=== PATIENT | male | born 1975 | race Asian ===

== ENCOUNTER → 2018-06-24 | Outpatient (CLI) | payer BC ==
[2018-06-24 20:03] LABS: CALCIUM 8.3 mg/dL (8.4-10.2); CREATININE, serum 1.04 mg/dL (0.66-1.25)
== END ==
LOC: ZCOL.LAB 19:29
PROVIDERS: Family Medicine
DX: I10 Essential (primary) hypertension (principal)

== ENCOUNTER 2018-08-27 15:13 | Inpatient (IN) | payer BC ==
[~2018-08-27] VITALS: Ht 162.6 cm; Wt 70.3 kg
[2018-08-27] VITALS (174 sets, daily range): BP systolic 119–135; BP diastolic 79–83; PULSE 114–118; TEMP 7.9; O2SAT 87–100
[2018-08-27] MEDS ORDERED: PRINIVIL40 MG PO (15:56)
[2018-08-27] MEDS ORDERED: INSLANT SQ (15:56)
[2018-08-27] MEDS ORDERED: NEURONTIN300 MG/CAP PO (15:56)
[2018-08-27] MEDS ORDERED: GLUCOPHAGE1000 MG PO (15:57)
[2018-08-27 15:58] LABS: BASO # 0.1 (0.0-0.2); BASO % 1.1 % (0.0-2.0); EOS # 0.1 (0.0-0.7); EOS % 1.1 % (0-4.0); GRAN # 6.6 (1.4-6.5); GRAN % 67.3 % (42.2-75.2); HEMATOCRIT 42.2 % (42.0-52.0); HEMOGLOBIN 13.4 g/dl (13.5-18.0); LYMPH % 20.6 % (20.0-51.0); MEAN CELL VOLUME 78 fl (80.0-100.0); MEAN CORPUSCULAR HEMOGLOBIN 25 pg (27.0-31.0); MEAN CORPUSCULAR HGB CONC 32 g/dl (33.0-37.0); MEAN PLATELET VOLUME 9.4 fl (7.4-10.4); MONO # 0.9 (0.1-0.6); MONO % 9.5 % (1.7-9.3); PLATELET COUNT 255 K/mm3 (130-400); RED BLOOD COUNT 5.43 M/mm3 (4.20-5.60); REDCELL DISTRIBUTION WIDTH-CV 16.4 % (11.5-14.5)
[2018-08-27 16:08] LABS: ALANINE AMINOTRANSFERASE 39 U/L (21-72); ALBUMIN 2.9 gm/dL (3.5-5.0); ALCOHOL(ethanol),MEDICAL 152 mg/dL; ALKALINE PHOSPHATASE 150 U/L (50-136); ANION GAP 12 mmol/L (7-16); AST,SGOT 59 U/L (15-37); BILIRUBIN,TOTAL 0.3 mg/dL (0.0-1.0); BLOOD UREA NITROGEN 8 mg/dL (9-20); CALCIUM 8.1 mg/dL (8.4-10.2); CARBON DIOXIDE 23 mmol/L (22-30); CHLORIDE 94 mmol/L (98-107); CREATININE, serum 1.03 mg/dL (0.66-1.25); LIPASE 126 U/L (23-300); POTASSIUM 3.4 mmol/L (3.4-5.0); SODIUM 129 mmol/L (137-145); TOTAL PROTEIN 6.2 gm/dL (6.4-8.2)
[2018-08-27 16:09] LABS: ACETONE,SERUM NEGATIVE
[2018-08-27 16:14] LABS: GLUCOSE 588 mg/dL (74-106)
[2018-08-27 16:20] LABS: TROPONIN-I < 0.012 ng/mL (0.000-0.035)
--- NOTE | 2018-08-27 16:30 | NUR ---
Patient arrives to ICU room 2 by stretcher. Patient able to ambulate from stretcher to bed. Patient assessment completed. Patient denies any shortness of breath. States he has pain at 2-3/10 and describes it as a burning pain. Right great toe amputatation apparent upon assessment. Patient heart rate tachycardic. DONNA Black, accompanies patient and called report to this nurse before arrival. Will closely monitor.
[2018-08-27 18:48] LABS: MAGNESIUM 2.2 mg/dL (1.6-2.3); PHOSPHOROUS 2.9 mg/dL (2.5-4.5)
[2018-08-27 18:51] LABS: COLLECTION METHOD CLEAN CATCH
[2018-08-27 19:06] LABS: PH 5 (5-8); SQUAMOUS EPITHELIAL None Seen /hpf; URINE APPEARANCE Clear; URINE BACTERIA None Seen /hpf; URINE BILIRUBIN Negative (NEGATIVE); URINE BLOOD 1+ (NEGATIVE); URINE COLOR Straw; URINE GLUCOSE 3+ (NEGATIVE); URINE KETONE Negative (NEGATIVE); URINE LEUKOCYTE ESTERASE Negative (NEGATIVE); URINE NITRATE Negative (NEGATIVE); URINE PROTEIN(semi-quant) 2+ (NEGATIVE); URINE UROBILINOGEN Negative (NEGATIVE)
--- NOTE | 2018-08-27 19:20 | NUR ---
Bedside report given to DONNA Otoole.
--- NOTE | 2018-08-27 19:30 | NUR ---
Patient arrives to ICU room 2 by stretcher accompanied by DONNA Black, at 1823. Report received from Sofia prior to patient arrival. Patient ambulates from stretcher to bed. Patient states he is having some chest pain, describes it as burning and rates it a 2-3/10. Initial assessment and assessment B complete. No remarkable findings on assessment, with the exception of healed great right toe amputation. Patient states he drinks only beer. DONNA Black, calls this nurse at 1844 to notify her that 3 empty single shot containers of alcohol were found in the patient's ER room after he was transported to the ICU. Patient asked if he has any additional alcohol on his person. Patient states that he does not and only drank one in the ER. Clarified with patient that 3 empty bottles were found in ER, and patient denies additional alcohol when asked again. Patient's clothing and belongings sent home with family members. Patient constantly visually monitored since arriving on floor.
[2018-08-27 21:59] LABS: ANION GAP 9 mmol/L (7-16); BLOOD UREA NITROGEN 7 mg/dL (9-20); CARBON DIOXIDE 25 mmol/L (22-30); CHLORIDE 102 mmol/L (98-107); CREATININE, serum 1.06 mg/dL (0.66-1.25); GLUCOSE 257 mg/dL (74-106); POTASSIUM 3.2 mmol/L (3.4-5.0); SODIUM 135 mmol/L (137-145)
[2018-08-27 22:16] LABS: TROPONIN-I 6 HR POST INITIAL < 0.012 ng/mL (0.000-0.034)
[2018-08-28] VITALS (469 sets, daily range): BP systolic 96–170; BP diastolic 78–105; PULSE 92–115; TEMP 98–98.8; O2SAT 74–100
--- NOTE | 2018-08-28 04:45 | NUR ---
PT HAS HIS WALLET WITH MONEY AT BEDSIDE. PT REFUSED TO HAVE THIS RN COUNT HIS MONEY AND PUT ON SAFE, INSISTED TO KEEP IT AT BEDSIDE AND VERBALIZED "IT'S OKAY." PT REMINDED THAT HOSPITAL/STAFF ARE NOT RESPONSIBLE IN CASE OF LOSS AND PT VERBALIZED UNDERSTANDING.
[2018-08-28 06:25] LABS: BASO # 0.1 (0.0-0.2); BASO % 0.6 % (0.0-2.0); EOS # 0.3 (0.0-0.7); EOS % 3.9 % (0-4.0); GRAN # 4.2 (1.4-6.5); GRAN % 49.6 % (42.2-75.2); HEMATOCRIT 39.6 % (42.0-52.0); HEMOGLOBIN 12.4 g/dl (13.5-18.0); LYMPH # 3.1 (1.2-3.4); LYMPH % 36.6 % (20.0-51.0); MEAN CELL VOLUME 78 fl (80.0-100.0); MEAN CORPUSCULAR HEMOGLOBIN 25 pg (27.0-31.0); MEAN CORPUSCULAR HGB CONC 31 g/dl (33.0-37.0); MEAN PLATELET VOLUME 9.2 fl (7.4-10.4); MONO # 0.7 (0.1-0.6); MONO % 8.8 % (1.7-9.3); PLATELET COUNT 223 K/mm3 (130-400); RED BLOOD COUNT 5.07 M/mm3 (4.20-5.60); REDCELL DISTRIBUTION WIDTH-CV 16.5 % (11.5-14.5)
[2018-08-28 06:38] LABS: ALBUMIN 2.3 gm/dL (3.5-5.0); BILIRUBIN UNCONJUGATED 0.2 mg/dL (0.0-1.1); BILIRUBIN,DIRECT 0.1 mg/dL (0.0-0.4); BILIRUBIN,TOTAL 0.2 mg/dL (0.0-1.0); CALCIUM 7.6 mg/dL (8.4-10.2); CREATININE, serum 1.05 mg/dL (0.66-1.25); POTASSIUM 3.7 mmol/L (3.4-5.0); TOTAL PROTEIN 5.4 gm/dL (6.4-8.2)
[2018-08-28 06:46] LABS: HEMOGLOBIN A1C 13.4 %
[2018-08-28 07:10] LABS: CHOLESTEROL RISK RATIO 4.6; MAGNESIUM 1.9 mg/dL (1.6-2.3); PHOSPHOROUS 3.4 mg/dL (2.5-4.5)
[2018-08-28 08:56] LABS: IRON,SERUM 145 ug/dL (35-150)
[2018-08-28 09:05] LABS: TOTAL IRON BINDING CAPACITY 242 ug/dL (261-462)
[2018-08-28 09:31] LABS: FERRITIN 67 ng/mL (18-464)
[2018-08-28 09:46] LABS: LACTIC ACID 1.7 mmol/L (0.4-2.0)
--- NOTE | 2018-08-28 10:00 | NUR ---
PT'S IV TO RIGHT HAND BEGAN BURNING, PT REQUESTED TO HAVE IV DISCONTINUED. IV REMOVED. 20G INSERTED TO LEFT UPPER ARM.
--- NOTE | 2018-08-28 12:48 | NUR ---
HEAVEN and SW student met with patient to discuss discharge planning. Patient lives in [place] with his family. His PCP is Dr Chi and he obtains his medications at [facility] in [place]. Patient reports he drinks about a 12 pack of beer a day. He would like to do inpatient therapy after detox if he can find one that is around a week to 10 days due to his job. If he cant find something with that length of stay then he would like to do outpatient. 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 Patient reports his family is supportive of him. HEAVEN offered to help patient complete DPOA, he refused. is putting in a psych consult. Patient to move to floor today if bed avalible. SW will find options that fit patients needs and will present them to him.
--- NOTE | 2018-08-28 14:38 | NUR ---
REPORT CALLED TO KEZIA THOMPSON ON 3RD FLOOR.
--- NOTE | 2018-08-28 14:45 | NUR ---
PT TAKEN VIA WHEELCHAIR TO MEDICAL ROOM 316. PT AWAKE, ALERT, AND COOPERATIVE. PT'S BELONGINGS TRANSFERRED WITH PATIENT. CONTACT MADE WITH NURSING STAFF OF PATIENT'S ARRIVAL. CARE TRANSFERRED.
--- NOTE | 2018-08-28 15:00 | NUR ---
Oriented pt to room. Pt is sitting on side of bed, breathing even and unlabored. Pt states he is feeling dizzy but no other complaints. Reminded pt to not get out of bed alone and to call nurse for assistance. Call light in reach.
--- NOTE | 2018-08-28 15:20 | NUR ---
Pt sitting in bed, still complaining of being dizzy. Checked FSBS, 276, gave 8 units of insulin. Pt denies any needs. Call light in reach.
[2018-08-29] VITALS (13 sets, daily range): BP systolic 19–188; BP diastolic 87–102; PULSE 83–129; TEMP 97.9–98.9
--- NOTE | 2018-08-29 05:14 | NUR ---
PT HAD NO C/O PAIN OR N/V/D THIS SHIFT. HAD ELEVATED B/P THIS NOC AT 0000 OF 188/91. CALLED C[facility]O [facility] FOR ORDERS, WAS INFORMED TO GIVE HYDRALAZINE IV. ORDER WAS OBTAINED AND MED GIVEN. PT BLOOD PRESSURE HAD GONE DONE. LAST B/P WAS DOWN TO 151/91. FSBS REMAINS ELEVATED AT HS AND HAS RECIEVED INSULIN S/S ORDERED. PT HASNT NEEDED ATIVAN OVER NIGHT PER DETOX PROTOCOL. NO OTHER ISSUES OR CONSERNS VOICED
[2018-08-29 07:13] LABS: BASO # 0.1 (0.0-0.2); BASO % 0.6 % (0.0-2.0); EOS # 0.4 (0.0-0.7); EOS % 4.2 % (0-4.0); GRAN # 5.5 (1.4-6.5); HEMATOCRIT 38.9 % (42.0-52.0); HEMOGLOBIN 12.2 g/dl (13.5-18.0); LYMPH # 2.5 (1.2-3.4); LYMPH % 26.4 % (20.0-51.0); MEAN CELL VOLUME 78 fl (80.0-100.0); MEAN CORPUSCULAR HEMOGLOBIN 25 pg (27.0-31.0); MEAN CORPUSCULAR HGB CONC 31 g/dl (33.0-37.0); MEAN PLATELET VOLUME 10.1 fl (7.4-10.4); MONO # 0.9 (0.1-0.6); MONO % 9.3 % (1.7-9.3); PLATELET COUNT 212 K/mm3 (130-400); RED BLOOD COUNT 4.97 M/mm3 (4.20-5.60); REDCELL DISTRIBUTION WIDTH-CV 16.6 % (11.5-14.5)
--- NOTE | 2018-08-29 07:15 | NUR ---
Report received from DONNA Wynn. Pt in bed resting, awake and alert, will continue to monitor.
[2018-08-29 07:28] LABS: CALCIUM 7.8 mg/dL (8.4-10.2); CREATININE, serum 0.87 mg/dL (0.66-1.25); POTASSIUM 3.8 mmol/L (3.4-5.0)
--- NOTE | 2018-08-29 08:42 | NUR ---
Assessment charted. Pt is scoring 3 on CIWA protocol for BP and HR. States he feels weak and usnteady on his feet, bed alarm turned on. Pt able to sleep well last night, talked with on phone and let pt talk with on phone for update. Headache at 2/10, water provided and denies needs for meds. IVF to [facility]. Ordering breakfast. Orientedx3, unable to give correct day of week thought it was august 28, corrected and provided information. Will continue to monitor.
--- NOTE | 2018-08-29 14:06 | NUR ---
SW met with patient about inpatient alcohol treatment options. Patient was given resources but has not looked over them yet. SW provided the same resources but specified which facilities can provide a 10 day program and who take BCBS. Patient report he will look over options and speak with HEAVEN later today or early tomorrow. HEAVEN will continue to follow.
--- NOTE | 2018-08-29 15:49 | NUR ---
SW followed up with patient about alochol treamtment options. Patient has decided he would like to take the resources with him and decide about treatment at home.
--- NOTE | 2018-08-29 17:52 | NUR ---
Pt has done well today. Up to bathroom as needed, urinating well, taking PO well. Very unsteady on his feet, passed along to hospitalist team, they are aware. Pt is very agreeable to care and adamant that he will abstain from alcohol going home. Notified hospitalist team that there will be no Psych coverage until saturday, they said it is okay if consult does not get done. Educated on metropolol, stopping IVF, maintaining good PO intake, and serax taper. Will give bedside shift report to nightshift nurse who will resume care.
[2018-08-30] VITALS (8 sets, daily range): BP systolic 142–156; BP diastolic 77–99; PULSE 95–107; TEMP 98.2–99
--- NOTE | 2018-08-30 05:29 | NUR ---
PT HAD UNEVENTFUL NOC. BLOOD SUGARS REMAIN IN MID 200'S. B/P HAS REMAINED AROUND 150'S/80'S THROUGHOUT NOC. PULSE RIGHT ABOVE THE 100'S . NO C/O PAIN. NO ISSUES OR CONSERNS VOICED OVER NOC.
[2018-08-30 09:58] LABS: BASO # 0.1 (0.0-0.2); BASO % 0.7 % (0.0-2.0); EOS # 0.3 (0.0-0.7); EOS % 3.3 % (0-4.0); GRAN # 5.2 (1.4-6.5); HEMATOCRIT 37.5 % (42.0-52.0); HEMOGLOBIN 12.1 g/dl (13.5-18.0); LYMPH # 2.6 (1.2-3.4); LYMPH % 28.4 % (20.0-51.0); MEAN CELL VOLUME 77 fl (80.0-100.0); MEAN CORPUSCULAR HEMOGLOBIN 25 pg (27.0-31.0); MEAN CORPUSCULAR HGB CONC 32 g/dl (33.0-37.0); MONO # 0.9 (0.1-0.6); MONO % 9.8 % (1.7-9.3); PLATELET COUNT 213 K/mm3 (130-400); RED BLOOD COUNT 4.85 M/mm3 (4.20-5.60); REDCELL DISTRIBUTION WIDTH-CV 16.8 % (11.5-14.5)
[2018-08-30 10:02] LABS: CALCIUM 8.1 mg/dL (8.4-10.2); CREATININE, serum 0.99 mg/dL (0.66-1.25); POTASSIUM 3.8 mmol/L (3.4-5.0)
--- NOTE | 2018-08-30 10:39 | NUR ---
Patient resting well this am. He has ordered breakfast. Minimal needs. Denies pain. Medications per orders & assessment complete. Will monitor
--- NOTE | 2018-08-30 11:31 | NUR ---
Patient sleeping again. Will mannie
[2018-08-30] MEDS ORDERED: LIPITOR 10MG10 MG PO (15:35)
[2018-08-30] MEDS ORDERED: ASPIRIN E.C. 8181 MG PO (15:36)
[2018-08-30] MEDS ORDERED: TOPROL XL 25MG25 MG PO (15:36)
[2018-08-30] MEDS ORDERED: INSLANT SQ (15:36)
[2018-08-30] MEDS ORDERED: FOLIC ACID 11 MG/TA1 PO (15:37)
[2018-08-30] MEDS ORDERED: THIAMINE 1100 MG/TAB PO (15:37)
[2018-08-30] MEDS ORDERED: DUO-KAPS1 CAP PO (15:37)
--- NOTE | 2018-08-30 16:12 | NUR ---
Patient ready for discharge. His family here to take him home. Dr. Ramirez rounded & orders obtained. Int DC & patient dressed. Patient given thorough discharge instructions. We reviewed new scripts faxed to [facility] pharmacy, all home meds reviewed & last dose taken. Reviewed diet & activity restrictions. Reviewed with patient importance of closely monitoring blood sugars at home. obstaining from alcohol and the importance reviewed. Patient will make a follow up in one week to see his PCP. Patient wheeled out with all belongings. his family to take him home
== END 2018-08-30 16:16 | disposition home or self-care (01) | DRG 638 ==
LOC: COL.ER 15:13 → ICU 17:06 → MEDICAL 17:06 → ICU 08-28 11:53 → IMCU 08-28 11:53 → MEDICAL 08-28 15:25
PROVIDERS: Emergency Medicine; Physician Assistant; ADMIT Hospitalist
DX: E11.00 Type 2 diabetes mellitus with hyperosmolarity without nonketotic hyperglycemic-hyperosmolar coma (NKHHC) (principal); E87.2 Acidosis; E44.0 Moderate protein-calorie malnutrition; R07.89 Other chest pain; E87.6 Hypokalemia; F10.20 Alcohol dependence, uncomplicated; Y90.6 Blood alcohol level of 120-199 mg/100 ml; I10 Essential (primary) hypertension; D50.9 Iron deficiency anemia, unspecified; E11.40 Type 2 diabetes mellitus with diabetic neuropathy, unspecified; E78.1 Pure hyperglyceridemia
CPT/HCPCS: 99223-AI; 99232-AI; 99239; J0360; J1644; J1815; J2060; J3411; J3480; J7030

== ENCOUNTER → 2018-08-27 | Outpatient (CLI) | payer BC ==
[~2018-08-27] MED LIST: GLUCOPHAGE1000 MG PO; INSLANT SQ; NEURONTIN300 MG/CAP PO; PRINIVIL40 MG PO
== END ==
LOC: ZCOL.LAB 14:24
DX: R07.9 Chest pain, unspecified (principal)

== ENCOUNTER → 2021-10-12 | Outpatient (CLI) | payer OTHER ==
[~2021-10-12] MED LIST changes: +ASPIRIN E.C. 8181 MG PO; +DUO-KAPS1 CAP PO; +FOLIC ACID 11 MG/TA1 PO; +LIPITOR 10MG10 MG PO; +THIAMINE 1100 MG/TAB PO; +TOPROL XL 25MG25 MG PO
== END ==
LOC: COL.VAS 08:36
DX: N18.5 Chronic kidney disease, stage 5 (principal)

== ENCOUNTER 2022-04-09 09:00 | Inpatient (IN) | payer OTHER ==
[~2022-04-09] VITALS: Ht 162.6 cm; Wt 74.0 kg
[2022-04-09 09:49] LABS: BASO # 0.1 K/mm3 (0.0-0.2); BASO % 0.9 % (0.0-2.0); EOS # 0.8 K/mm3 (0.0-0.7); EOS % 7.1 % (0.0-4.0); GRAN # 8.2 K/mm3 (1.4-6.5); GRAN % 70.6 % (42.2-75.2); HEMATOCRIT 24.9 % (42.0-52.0); HEMOGLOBIN 7.6 g/dl (13.5-18.0); LYMPH # 1.5 K/mm3 (1.2-3.4); LYMPH % 13.1 % (20.0-51.0); MEAN CELL VOLUME 69 fl (80.0-100.0); MEAN CORPUSCULAR HEMOGLOBIN 21 pg (27-31); MEAN CORPUSCULAR HGB CONC 31 g/dl (33.0-37.0); MEAN PLATELET VOLUME 9.7 fl (7.4-10.4); MONO # 0.9 K/mm3 (0.1-0.6); PLATELET COUNT 274 K/mm3 (130-400); RED BLOOD COUNT 3.63 M/mm3 (4.20-5.60); REDCELL DISTRIBUTION WIDTH-CV 15.2 % (11.5-14.5)
[2022-04-09 09:54] LABS: INR 1.2 (0.8-3.0); PROTHROMBIN TIME 13.8 SECONDS (9.7-12.8)
[2022-04-09 10:06] LABS: ALBUMIN 2.2 gm/dL (3.5-5.0); BILIRUBIN,TOTAL 0.4 mg/dL (0.2-1.2); CALCIUM 7.9 mg/dL (8.4-10.2); CREATININE, serum 7.99 mg/dL (0.72-1.25); POTASSIUM 4.9 mmol/L (3.5-4.5); TOTAL PROTEIN 6.9 gm/dL (6.2-8.1)
[2022-04-09 10:59] VITALS: BP 165/81; PULSE 84
[2022-04-09 11:00] VITALS: BP 165/81; PULSE 84
[2022-04-09 11:44] VITALS: BP 170/95; PULSE 85
--- NOTE | 2022-04-09 11:51 | NUR ---
SEE MERGE FOR VITAL SIGNS, ASSESSMENTS, INTERVENTIONS AND MEDICATIONS GIVEN.
--- NOTE | 2022-04-09 17:16 | NUR ---
PT ALERT AND ORIENTED TIMES 4 ON ROOM AIR. PT TOLERATED PLACEMENT OF DIALYSIS CATHETER WELL. PT IS STILL UNDERGOING DIALYSIS. WILL CONTINUE TO MONITOR. NO FURTHER NEEDS AT THE MOMENT.
--- NOTE | 2022-04-09 19:06 | NUR ---
PT ALERT AND ORIENTED. SPOUSE AT BEDSIDE. PT DENIES PAIN. CALL LIGHT WITHIN REACH. NO FURTHER NEEDS IDENTIFIED.
[2022-04-09 20:11] VITALS: BP 150/77; PULSE 96; TEMP 98.4
[2022-04-09 22:50] LABS: HEPATITIS B SURFACE ANTIBODY <2.0 (()); HEPATITIS B SURFACE ANTIGEN Negative (Negative); HEPATITIS C VIRUS ANTIBODY Negative (Negative)
[2022-04-09 23:36] VITALS: BP 153/77; PULSE 91; TEMP 98.6
[2022-04-10 04:36] VITALS: BP 132/72; PULSE 92; TEMP 97.8
[2022-04-10 07:38] VITALS: BP 164/78; PULSE 93; TEMP 98.3
--- NOTE | 2022-04-10 08:59 | NUR ---
PT ALERT AND ORIENTED LAYING DOWN IN BED. PT REPORTS SLEEPING WELL. PT DIALYSIS PORT FREE OF INFLAMMATION. PT DENIES PAIN. PT CALL LIGHT WITHIN REACH. NO FURTHER NEEDS IDENTIFIED.
--- NOTE | 2022-04-10 09:42 | NUR ---
Initial visit; Patient and his thanked Drilling Field Professional for offering them Blessings and thanking them for choosing our hospital and encouraged them to let us know their needs while Madhu is a patient here.
--- NOTE | 2022-04-10 10:41 | NUR ---
Radio Personality met with patient to discuss discharge planning. Patient lives in [place] with his , Dana (ph#[phone]) who is at bedside. Patient sees Dr. Goddard at [facility] in [place] for primary care and also obtains medications at [facility]. Patient does not use any DME and is independent with ADLS. Patient does not have DPOA-HC and was not interested in completing one at this time. Patient plans to return home at time of discharge. Discharge Plan: Home
[2022-04-10 11:08] LABS: BASO # 0.1 K/mm3 (0.0-0.2); BASO % 0.8 % (0.0-2.0); EOS % 8.3 % (0.0-4.0); GRAN # 8.8 K/mm3 (1.4-6.5); GRAN % 71.6 % (42.2-75.2); LYMPH # 1.1 K/mm3 (1.2-3.4); LYMPH % 9.1 % (20.0-51.0); MEAN CELL VOLUME 67 fl (80.0-100.0); MEAN CORPUSCULAR HGB CONC 32 g/dl (33.0-37.0); MEAN PLATELET VOLUME 9.1 fl (7.4-10.4); MONO # 1.2 K/mm3 (0.1-0.6); MONO % 9.7 % (1.7-9.3); PLATELET COUNT 234 K/mm3 (130-400); RED BLOOD COUNT 3.45 M/mm3 (4.20-5.60); REDCELL DISTRIBUTION WIDTH-CV 15.3 % (11.5-14.5)
[2022-04-10 11:09] LABS: HEMATOCRIT 23.2 % (42.0-52.0); HEMOGLOBIN 7.3 g/dl (13.5-18.0); MEAN CORPUSCULAR HEMOGLOBIN 21 pg (27-31)
[2022-04-10 11:41] LABS: CALCIUM 7.7 mg/dL (8.4-10.2); CREATININE, serum 6.68 mg/dL (0.72-1.25); POTASSIUM 4.5 mmol/L (3.5-4.5)
[2022-04-10 11:51] VITALS: BP 185/105; PULSE 96; TEMP 98.1
[2022-04-10 15:28] VITALS: BP 160/82; PULSE 97; TEMP 98.5
[2022-04-10 18:22] VITALS: BP 144/79
--- NOTE | 2022-04-10 18:25 | NUR ---
PT BLOOD PRESSURE RE ASSESED AND IT IS BACK TO NORMAL LIMITS 144/79. PT DENIES PAIN. PT CALL LIGHT WITHIN REACH. SPOUSE AT BEDSIDE. NO FURTHER NEEDS AT THE MOMENT.
[2022-04-10 20:54] VITALS: BP 153/82; PULSE 97; TEMP 98.7
[2022-04-11] VITALS (11 sets, daily range): BP systolic 96–172; BP diastolic 68–425; PULSE 82–98; TEMP 97.6–98.9
[2022-04-11 06:54] LABS: BASO # 0.1 K/mm3 (0.0-0.2); BASO % 0.8 % (0.0-2.0); EOS # 1.2 K/mm3 (0.0-0.7); EOS % 10.5 % (0.0-4.0); GRAN # 7.4 K/mm3 (1.4-6.5); GRAN % 62.9 % (42.2-75.2); LYMPH # 1.6 K/mm3 (1.2-3.4); LYMPH % 13.4 % (20.0-51.0); MEAN CELL VOLUME 71 fl (80.0-100.0); MEAN CORPUSCULAR HGB CONC 30 g/dl (33.0-37.0); MEAN PLATELET VOLUME 9.5 fl (7.4-10.4); MONO # 1.4 K/mm3 (0.1-0.6); MONO % 11.7 % (1.7-9.3); PLATELET COUNT 213 K/mm3 (130-400); RED BLOOD COUNT 3.18 M/mm3 (4.20-5.60); REDCELL DISTRIBUTION WIDTH-CV 15.2 % (11.5-14.5)
[2022-04-11 07:12] LABS: ALBUMIN 1.7 gm/dL (3.5-5.0); CALCIUM 7.3 mg/dL (8.4-10.2); CREATININE, serum 5.32 mg/dL (0.72-1.25); PHOSPHOROUS 3.7 mg/dL (2.3-4.7)
[2022-04-11 07:13] LABS: HEMATOCRIT 22.5 % (42.0-52.0); HEMOGLOBIN 6.7 g/dl (13.5-18.0); MEAN CORPUSCULAR HEMOGLOBIN 21 pg (27-31)
[2022-04-11] MEDS ORDERED: CALCITRIOL PO (10:08)
[2022-04-11] MEDS ORDERED: ZESTRIL 10MG10 MG PO (10:16)
--- NOTE | 2022-04-11 10:35 | NUR ---
PATIENT RECIEVING BLOOD TRANSFUSION IN DIALYSIS.
--- NOTE | 2022-04-11 11:15 | NUR ---
2ND UNIT OF BLOOD TRANSFUSING IN DIALYSIS.
--- NOTE | 2022-04-11 12:29 | NUR ---
PATIENT GIVEN DISCHARGE INTRUCTIONS AND EDUCATION. PERIPHERAL IV DISCONTINUED.
--- NOTE | 2022-04-11 12:52 | NUR ---
PATIENT WALKED TO ER ENTRANCE WITH PCT. PATIENT LEFT IN STABLE CONDITION.
== END 2022-04-11 12:52 | disposition home or self-care (01) | DRG 673 ==
LOC: MEDICAL 09:00 → SURG 11:52 → MEDICAL 15:54
PROVIDERS: ADMIT Internal Medicine Nephrology
PROC: 0JH63XZ Insertion of Tunneled Vascular Access Device into Chest Subcutaneous Tissue and Fascia, Percutaneous Approach (ICD-10-PCS; principal; 2022-04-09)
PROC: 02H633Z Insertion of Infusion Device into Right Atrium, Percutaneous Approach (ICD-10-PCS; 2022-04-09)
PROC: B5181ZA Fluoroscopy of Superior Vena Cava using Low Osmolar Contrast, Guidance (ICD-10-PCS; 2022-04-09)
PROC: 5A1D70Z Performance of Urinary Filtration, Intermittent, Less than 6 Hours Per Day (ICD-10-PCS; 2022-04-09)
DX: I12.0 Hypertensive chronic kidney disease with stage 5 chronic kidney disease or end stage renal disease (principal); N18.6 End stage renal disease; E87.3 Alkalosis; E11.22 Type 2 diabetes mellitus with diabetic chronic kidney disease; E11.40 Type 2 diabetes mellitus with diabetic neuropathy, unspecified; F10.90 Alcohol use, unspecified, uncomplicated; D63.1 Anemia in chronic kidney disease; E83.39 Other disorders of phosphorus metabolism; E21.3 Hyperparathyroidism, unspecified; Z23 Encounter for immunization; Z79.82 Long term (current) use of aspirin; Z79.4 Long term (current) use of insulin; Z89.411 Acquired absence of right great toe
CPT/HCPCS: C1751; J0690; J1644; J1756; J2250; J3010; P9016; Q5105

== ENCOUNTER 2023-08-07 10:27 | Day surgery (SDC) | payer OTHER ==
[2023-08-07] VITALS (7 sets, daily range): BP systolic 128–149; BP diastolic 47–79; PULSE 81–108; TEMP 97–97.3
[~2023-08-07] VITALS: Ht 162.6 cm; Wt 72.9 kg
[~2023-08-07 10:27] MED LIST changes: +CALCITRIOL PO; +HYDROmorphone 2 MG/1 ML VIAL IV PRN; +LANTUS100 U/ML SQ; +LR 1,000 ML IV SCH; +MULTI VITAMINS1 TAB PO; +NATURE'S BLEND100 M2 PO; +Ondansetron 4 MG/2 ML VIAL IV PRN; +TESSALON P100 MG/CAP PO; +TUMS EXTRA STR750 MG PO; +ZESTRIL 10MG10 MG PO; +fentaNYL 50 MCG/ML 2 ML VIAL IV PRN
--- NOTE | 2023-08-07 11:05 | NUR ---
The patient ambulated back to [place] 2 independently using a steady gait and appeared to tolerate the activity well. Vital signs obtained. Consent signed. 18G IV started in right anecubital on 3rd attempt, with LR infusing without difficulty. Blood obtained from IV start for lab and accucheck. Blood sugar level was 135. Call light is within reach. Family brought back to be at his bedside. Assessment completed. Home medications reconcilled. Warm blanket provided. Denies any further needs.
[2023-08-07 11:27] LABS: CALCIUM 8.8 mg/dL (8.4-10.2); CREATININE, serum 7.98 mg/dL (0.72-1.25); POTASSIUM 5.2 mmol/L (3.5-4.5)
[2023-08-07] MEDS ORDERED: CISATRACURIUM 2 MG/ML IV ONE (11:39)
[2023-08-07] MEDS ORDERED: fentaNYL 50 MCG/ML 2 ML VIAL ONE (11:41)
[2023-08-07] MEDS ORDERED: NORCO 325 MG-51 TAB PO (12:00)
[2023-08-07] MEDS ORDERED: Ondansetron 4 MG/2 ML VIAL IV PRN (13:00)
[2023-08-07] MEDS ORDERED: Acetaminophen 325 MG TAB PO PRN (13:00)
[2023-08-07] MEDS ORDERED: Topical Skin Adhesive 1 EACH (1 ML) TOP ONE (13:37)
--- NOTE | 2023-08-07 14:00 | NUR ---
The patient arrived back to [place] 2 from the recovery room. The patient appears drowsy but arouses easily to his name. The patient has oxygen in place at 2L per nasal cannula. Post procedure vital signs were started at this time. The patient's 3 lap sites that are covered with surgical glue appear without redness or edema. The patient's gauze dressing around the dialysis catheter has marked drainage. Call light is within reach. Family at bedside. Denies any needs at this time.
--- NOTE | 2023-08-07 14:15 | NUR ---
The patient appears to be tolerating the ice chips well and requests to try some ice water and strawberry jello. Family remains at his bedside. Vital signs appear stable.
--- NOTE | 2023-08-07 14:35 | NUR ---
The patient has finished his jello and requests to try a pain pill to continue his pain control at discharge.
--- NOTE | 2023-08-07 15:20 | NUR ---
Discharge instructions were reviewed with the patient and his family at this time. They all verbalized understanding and questions were answered at this time. The patient's IV to his right anecubital was removed and a pressure dressing was applied to the site. The nurse instructed the patient to get dressed and notify the staff when he is ready to be escorted out.
--- NOTE | 2023-08-07 15:36 | NUR ---
The patient was escorted out via wheelchair to a private vehicle by DONNA Jain. The patient's belongings and dischare paperwork were sent with him. The patient's employee, Solange, is present to drive the patient and his family home.
[2023-08-13] MEDS ORDERED: TOPROL XL 50MG50 MG PO (15:48)
[2023-08-13] MEDS ORDERED: LIPITOR 10MG10 MG PO (15:49)
[2023-08-13] MEDS ORDERED: IBU800 M1 PO (15:50)
[2023-08-13] MEDS ORDERED: PRILOSEC 20MG20 MG PO (15:50)
[2023-08-13] MEDS ORDERED: FLONASE NASAL S16 GM NS (15:50)
[2023-08-13] MEDS ORDERED: GENTAMICIN TOPI15 GM TP (16:16)
[2023-08-13] MEDS ORDERED: BACTROBAN 22GM22 GM TP (16:17)
== END 2023-08-07 15:36 | disposition home or self-care (01) ==
LOC: SDCO 10:27
PROVIDERS: Surgery
DX: E13.22 Other specified diabetes mellitus with diabetic chronic kidney disease (principal); I12.0 Hypertensive chronic kidney disease with stage 5 chronic kidney disease or end stage renal disease; N18.6 End stage renal disease; Z99.2 Dependence on renal dialysis; Z89.411 Acquired absence of right great toe; Z79.84 Long term (current) use of oral hypoglycemic drugs; N17.9 Acute kidney failure, unspecified
CPT/HCPCS: C1750; J1170; J1920; J2704; J3010; J7120

== ENCOUNTER 2023-08-22 02:15 | Inpatient (IN) | payer OTHER ==
[~2023-08-22] VITALS: Ht 162.6 cm; Wt 73.1 kg
[~2023-08-22 02:15] MED LIST changes: +BACTROBAN 22GM22 GM TP; +FLONASE NASAL S16 GM NS; +GENTAMICIN TOPI15 GM TP; -HYDROmorphone 2 MG/1 ML VIAL IV PRN; +IBU800 M1 PO; -LR 1,000 ML IV SCH; +NORCO 325 MG-51 TAB PO; -Ondansetron 4 MG/2 ML VIAL IV PRN; +PRILOSEC 20MG20 MG PO; +TOPROL XL 50MG50 MG PO; -fentaNYL 50 MCG/ML 2 ML VIAL IV PRN
[2023-08-22] MEDS ORDERED: Vancomycin 1.5 GM,Special Dose/Pharmacy Prepared 1.5 GM in NS 250 ML IV SCH (22:30)
[2023-08-22] MEDS ORDERED: Acetaminophen 325 MG TAB PO PRN (22:30)
[2023-08-22] MEDS ORDERED: Albuterol/Ipratropium 3 MG-0.5 MG/3 ML Neb Soln IH PRN (22:30)
[2023-08-22] MEDS ORDERED: Dextrose 50% Water 25 GM/50 ML SYRINGE IV PRN (23:00)
[2023-08-22] MEDS ORDERED: Dextrose (Glucose) 15 GM (4 x 3.75 GM) Chewable TABLET PACK PO PRN (23:00)
[2023-08-22] MEDS ORDERED: Glucagon 1 MG VIAL IM PRN (23:00)
[2023-08-23] VITALS (9 sets, daily range): BP systolic 119–163; BP diastolic 52–92; PULSE 89–130; TEMP 97.9–100.3
--- NOTE | 2023-08-23 00:45 | NUR ---
Admitted to medical floor from [facility], VSS, afbrile, slightly tachy at 107/min, on o2 at 3L/nc with sats 100%, o2 reduced to 2L/nc at this time, Pt states he is in severe pain 10/10 to abdomen - left side around the peritoneal dialysis catheter. Mehnaz ANDRADE here to talk with pt and write orders--informed her of his pain to abdomen . Steady on feet, Denies weakness. Does not want to change into a gown at this time-- will do in AM, INT to right AC.
[2023-08-23] MEDS ORDERED: HYDROmorphone 0.5 MG/0.5 ML SYRINGE IV PRN (01:00)
[2023-08-23] MEDS ORDERED: Atorvastatin 10 MG TAB PO SCH (01:06)
[2023-08-23] MEDS ORDERED: Insulin Glargine-ygfn (Lantus) SQ SCH (01:07)
[2023-08-23] MEDS ORDERED: Lisinopril 20 MG TAB PO SCH (01:10)
[2023-08-23] MEDS ORDERED: Melatonin 3 MG TAB PO SCH (01:15)
[2023-08-23] MEDS ORDERED: GENTAMICIN 0.1% TP SCH (01:15)
[2023-08-23] MEDS ORDERED: Docusate Sodium 100 MG CAP PO SCH (01:15)
[2023-08-23] MEDS ORDERED: *Vancomycin Dosing Protocol IV SCH (01:45)
[2023-08-23] MEDS ORDERED: Albuterol/Ipratropium 3 MG-0.5 MG/3 ML Neb Soln IH SCH (02:00)
--- NOTE | 2023-08-23 02:00 | NUR ---
Pt states the Dilaudid was effective for abd pain,, very appreciative -- now just wanting to sleep-- at bedside , will stay the night. BS was 144, did get his long acting insulin - had a few bites of pudding.
--- NOTE | 2023-08-23 05:51 | NUR ---
Has been sleeping for the past 2-3 hours/ temp 99.7
[2023-08-23 06:55] LABS: MEAN CELL VOLUME 82 fl (80.0-100.0); MEAN CORPUSCULAR HGB CONC 33 g/dl (33.0-37.0); MEAN PLATELET VOLUME 9.6 fl (7.4-10.4); PLATELET COUNT 307 K/mm3 (130-400); RED BLOOD COUNT 3.57 M/mm3 (4.20-5.60); REDCELL DISTRIBUTION WIDTH-CV 15.2 % (11.5-14.5)
[2023-08-23 06:56] LABS: HEMATOCRIT 29.2 % (42.0-52.0); HEMOGLOBIN 9.5 g/dl (13.5-18.0); MEAN CORPUSCULAR HEMOGLOBIN 27 pg (27-31)
[2023-08-23] MEDS ORDERED: Omeprazole 20 MG **** subs to Pantoprazole 40 MG PO SCH (07:00)
[2023-08-23 07:13] LABS: ALBUMIN 2.4 gm/dL (3.5-5.0); BILIRUBIN,TOTAL 1.3 mg/dL (0.2-1.2); CREATININE, serum 6.07 mg/dL (0.72-1.25); POTASSIUM 5.7 mmol/L (3.5-4.5); TOTAL PROTEIN 7.9 gm/dL (6.2-8.1)
[2023-08-23 07:15] LABS: ANISOCYTOSIS 1+; BAND 1 % (0-10); HYPOCHROMIA 1+; LYMPHOCYTE 8 % (20.0-51.0); NEUTROPHILS 85 % (42.0-75.2); PLATELET ESTIMATE NORMAL (NORMAL)
[2023-08-23 07:16] LABS: BURR CELLS 1+; OVALOCYTES 1+; SCHISTOCYTES 1+
--- NOTE | 2023-08-23 07:31 | NUR ---
DR WHELAN CALLED THIS NURSE TO NOTIFY OF STAT CT ORDERED. THIS NURSE TOLD TO CALL HIM WHEN CT IS DONE. CT CALLED SHORTLY AFTER AND NOTIFIED THIS NURSE THAT PT WOULD MOST LIKELY BE DONE AROUND 12. THIS NURSE NOTIFIED OF DRS STAT ORDER WAS TOLD THAT IT WOULD BE DONE BEFORE 12.
[2023-08-23] MEDS ORDERED: Insulin Lispro (HumaLOG) SQ SCH (08:00)
[2023-08-23] MEDS ORDERED: Fluticasone Nasal 50 MCG/Spray 16 GM BOTTLE NS SCH (09:00)
[2023-08-23] MEDS ORDERED: Folic Acid 1 MG TAB PO SCH (09:00)
[2023-08-23] MEDS ORDERED: Multivitamin TAB PO SCH (09:00)
[2023-08-23] MEDS ORDERED: Polyethylene Glycol 3350 17 GM PDS PO SCH (09:00)
[2023-08-23] MEDS ORDERED: Pantoprazole 40 MG in NS 10 ML IV SCH (09:00)
--- NOTE | 2023-08-23 09:00 | NUR ---
blasting worker met with patient and his to discuss intake as pt was recently re-admitted. reports they live in [place] together. She reports pt sees Dr. Gonzalez and obtains medications from [facility] with no difficulties. Pt reports he is independent with ADLS and uses no DME. He does not have a DPOA-HC and declined to complete one. Pt and SW recall pt's last admission where Home Health was set up. He reports they never came to see him. SW said she will follow up to get this set up after PT/OT see him again. SW called [facility] who reports they decline patient. PT/OT Pending Discharge Plan: tbd, likely home with HH again
[2023-08-23] MEDS ORDERED: Heparin 1,000 UNITS/ML 10 ML Multi-Dose VIAL IV SCH (09:15)
--- NOTE | 2023-08-23 09:30 | NUR ---
PT RESTING IN BED UPON ENTERING, RISE AND FALL OF CHEST NOTED. PTS NASAL CANNULA NOT PLACED PROPERLY AND PT EDUCATED AND REMINDED OF THIS, PT ON 2L. TEMP 100.3, PRN TYLENOL GIVEN. FISTULA TO LEFT UPPER ARM CLEAN DRY AND INTACT. PERITONEAL DIALYSIS CATHETER TO LEFT LOWER ABDOMEN, PT REPORTS PAIN AT SITE AND GIVEN PRN FOR PAIN. INT TO RIGHT AC PATENT. PT REPORTS WANTING REST BUT DENIES NEEDS AT THIS TIME. BED IN LOWEST POSITION, CALL LIGHT IN REACH. MANAGER R D AT BEDSIDE UPON THIS NURSE LEAVING.
--- NOTE | 2023-08-23 09:44 | NUR ---
PT IN CT VIA WHEELCHAIR
[2023-08-23] MEDS ORDERED: Iohexol 300 - 100 ML VIAL IV ONE (09:48)
--- NOTE | 2023-08-23 10:37 | NUR ---
D: Initial visit: Neurology Specialist stopped by room on rounds. Pt was resting and content with his by his side. A: Pt lives in [place]. He stated he has no needs right now. P: Neurology Specialist informed pt that if he needed anything from the custodial foreman area to let his nurse know. Neurology Specialist will follow up as needed.
--- NOTE | 2023-08-23 10:37 | NUR ---
DR WHELAN CALLED AND NOTIFIED THAT CT WAS DONE. ORDERS PLACED FOR PD CATHETER REMOVAL, THIS NURSE NOTIFIED THAT THEY WILL BE DOING PROCEDURE AROUND 1115. TRAY AT BEDSIDE AND REMOVED, PT EDUCATED. DIALYSIS READY FOR PT, THIS NURSE NOTIFIED HER THAT PT IS GOING FOR PROCEDURE AND WILL COME AFTER.
[2023-08-23] MEDS ORDERED: Vancomycin 1.25 GM,Special Dose/Pharmacy Prepared 1.25 GM in NS 250 ML IV SCH (11:15)
--- NOTE | 2023-08-23 11:18 | NUR ---
PT CHANGED TO GOWN AND CONSENT SIGNED. PT TAKEN TO OR
[2023-08-23] MEDS ORDERED: VORICONAZOLE IV SCH (11:30)
[2023-08-23] MEDS ORDERED: NS IV SCH ×2 (11:30→16:00)
[2023-08-23] MEDS ORDERED: Cefepime 1 G in Water For Injection,Sterile 10 ML IV SCH (11:30)
[2023-08-23] MEDS ORDERED: Lidocaine PF 2% (20 MG/ML) 5 ML VIAL ONE (11:56)
[2023-08-23] MEDS ORDERED: fentaNYL 50 MCG/ML 2 ML VIAL ONE (11:56)
[2023-08-23] MEDS ORDERED: Ondansetron 4 MG/2 ML VIAL ONE (11:56)
[2023-08-23] MEDS ORDERED: Rocuronium 50 MG/5 ML Multi-Dose VIAL ONE (11:56)
[2023-08-23] MEDS ORDERED: Midazolam 2 MG/2 ML VIAL ONE (11:57)
[2023-08-23] MEDS ORDERED: fentaNYL 50 MCG/ML 2 ML VIAL IV ONE (12:51)
[2023-08-23] MEDS ORDERED: fentaNYL 50 MCG/ML 2 ML VIAL IV PRN (13:30)
[2023-08-23] MEDS ORDERED: hydrALAZINE 20 MG/ML 1 ML VIAL IV PRN (13:30)
[2023-08-23] MEDS ORDERED: HYDROmorphone 2 MG/1 ML VIAL IV PRN (13:30)
[2023-08-23] MEDS ORDERED: Ondansetron 4 MG/2 ML VIAL IV PRN (13:30)
--- NOTE | 2023-08-23 13:56 | NUR ---
PT BACK ON FLOOR FROM OR. POST OP VITALS STARTED
--- NOTE | 2023-08-23 14:26 | NUR ---
PT IN DIALYSIS
--- NOTE | 2023-08-23 14:29 | NUR ---
PT BACK FROM OR, POST OP VITALS STARTED. DIALYSIS NURSE CALLED AND NOTIFIED THIS RN THAT IF PT ISNT IN THE ROOM BY 1430 DIAYLSIS WOULD AFTER HOURS. CHIQUITA UPDATED ON SITUATION ABOUT POST OPS AND OKAY W PT GOING TO DIALYSIS. PT TAKEN VIA BED, CLEAR LIQUID TRAY GIVEN
--- NOTE | 2023-08-23 14:49 | NUR ---
PT/OT have not yet seen patient. SW provided Medicare.gov list of Home Health agencies to to choose from. SW provided weekend phone number to call. Discharge Plan: Home
[2023-08-23] MEDS ORDERED: ANIDULAFUNGIN IV SCH (16:00)
--- NOTE | 2023-08-23 18:28 | NUR ---
Dialysis Note Pt arrived via bed. Goal set for 2.5 kg and 2.5 kg removed.Pt tolerated tx well and dcd back to room via bed with no concerns voiced.
--- NOTE | 2023-08-23 19:00 | NUR ---
PT SLEEPING UPON ENTERING, RISE AND FALL OF CHEST NOTED. ANTIBIOTICS STARTED PER ORDER. SHORTLY AFTER REENTERING PT AWAKE TO THIS NURSES VOICE. PT DENIES NEEDS AND WANTS TO REST
[2023-08-23] MEDS ORDERED: Acetaminophen 500 MG TAB PO ONE (19:45)
--- NOTE | 2023-08-23 19:45 | NUR ---
REPORT GIVEN TO DONNA RUSH
--- NOTE | 2023-08-23 19:52 | NUR ---
antibiotic restarted per hospitalist. 1000mg tylenol given
--- NOTE | 2023-08-23 20:01 | NUR ---
THIS NURSE CALLED TO BEDSIDE BY PCT WHO AMBULATED PT FROM BATHROOM. UPON ENTERING PT SITTING ON SIDE OF THE BED SHIVERING AND DIAPHORETIC. PT STATES THAT HES COLD AND HAVING TROUBLE BREATHING. PT CURRENTLY ON 1L NASAL CANNULA. VITALS TAKEN AND O2 SATS 81%, O2 TITRATED TO 3 LITERS. ORAL TEMP 98.4 AND PTS HEARTRATE IN 140S. PT 91%. PT ITCHING HIS LEGS AND ARMS, PT STATES THAT THIS RECENTLY STARTED. ANTIBIOTICS STOPPED. 1 2X2 DRESSING TO ABDOMEN SOAKED WITH BRIGHT RED BLOOD AND 2ND SLIGHTLY COVERED WITH SMALL AMOUNT OF BLOOD. PT SCRATCHING AND REMOVED LEFT UPPER ARM FISTULA DRESSING, SCANT AMOUNT OF BLOOD NOTED FROM FISTULA. BLOOD SUGAR NORMAL. RECTAL TEMP 101.3. PT CONTINUED TO DESAT ON 3L AND OXYMASK PLACED ON 5L. PT GIVEN 1GRAM OF TYLENOL PER HOSPITALIST AND EKG DONE. PT CONTINUES TO DESAT INTO 70S AND O2 BUMPED TO 15L OXYMASK. PT SHORTLY RECOVERED AT 96% AT 9L OXYMASK. PT DENIES PAIN AT THIS TIME AND ANTIBIOTIC RESTARTED PER ORDER. AT BEDSIDE. BED IN LOWEST POSITION, CALL LIGHT IN REACH
[2023-08-23] MEDS ORDERED: Ibuprofen 600 MG TAB PO ONE (21:30)
--- NOTE | 2023-08-23 22:57 | NUR ---
Report received from DONNA Rodriguez. Pt unstable at the time of shift change, around 1944. Vitals stabilizing and HR back to 110-115. O2 at 96%; continue having some itchyness and chills, no longer diaphoretc. Eraxis running at this time per RAC. Pt on O2 at 9L per oxymask. This nurse stepped out to other room once pt was feeling better. DONNA Adler called this SOLAR THERMAL TECHNICIAN to report that pt was having again increased chills, diaphoresis, tachycardia 140s, O2 at 75%; increased itchyness. Per HAYES Darby medication was put on hold, and blood cultures ordered. Rectal temperature 102.4 Motrin given per orders. Surgical vice president education provider, Dr Martinez notified of this event, and instructed to place an ID consult and put the medication on hold at this time. RT present in pt's room for breathing treatment. Pt O2 back to 95%. maintenance tech and clinical team lead unable to obtain blood cultures. HAYES Darby notified.
--- NOTE | 2023-08-23 23:14 | NUR ---
Pt's medications administered without complications. No adverse reactions observed. Pt is stable and no itchyness reported. O2 back to 3L per oxymask. Belongings and call light within reach.
[2023-08-24] VITALS (13 sets, daily range): BP systolic 104–138; BP diastolic 64–80; PULSE 93–103; TEMP 97.8–99.9
[2023-08-24 10:41] LABS: MEAN CELL VOLUME 82 fl (80.0-100.0); MEAN CORPUSCULAR HGB CONC 32 g/dl (33.0-37.0); MEAN PLATELET VOLUME 9.6 fl (7.4-10.4); PLATELET COUNT 249 K/mm3 (130-400); RED BLOOD COUNT 3.56 M/mm3 (4.20-5.60); REDCELL DISTRIBUTION WIDTH-CV 15.4 % (11.5-14.5)
[2023-08-24 10:51] LABS: HEMATOCRIT 29.2 % (42.0-52.0); HEMOGLOBIN 9.3 g/dl (13.5-18.0); MEAN CORPUSCULAR HEMOGLOBIN 26 pg (27-31)
[2023-08-24 11:00] LABS: ALBUMIN 2.2 gm/dL (3.5-5.0); BILIRUBIN,TOTAL 0.8 mg/dL (0.2-1.2); CALCIUM 8.8 mg/dL (8.4-10.2); CREATININE, serum 4.78 mg/dL (0.72-1.25); POTASSIUM 5.1 mmol/L (3.5-4.5); TOTAL PROTEIN 7.7 gm/dL (6.2-8.1)
[2023-08-24 11:30] LABS: EOSINOPHIL 5 % (0-4); HYPOCHROMIA 1+; LYMPHOCYTE 6 % (20.0-51.0); NEUTROPHILS 89 % (42.0-75.2); PLATELET ESTIMATE NORMAL (NORMAL)
[2023-08-24] MEDS ORDERED: Anidulafungin 100 MG in NS 100 ML IV SCH (16:00)
--- NOTE | 2023-08-24 17:45 | NUR ---
Pt transfered to room 348.
--- NOTE | 2023-08-24 18:33 | NUR ---
Pt on O2 2L/NC throughout day- SpO2 WNL. Drowsy this morning after breakfast and bathing cares-refused therapy. Dressing to PD catheter site changed twice today- both times with sanguineous drainage. Denied pain throughout shift. IV site came out to RAC this morning. #20 started to RW by DONNA Page after two unsucessful attempts by myself and DONNA Marcelino. DONNA Marcelino was able to draw blood from RAC after several unsuccessful sticks by lab-blood Cultures not drawn due to difficulty.
--- NOTE | 2023-08-24 18:37 | NUR ---
PATIENT DRESSING CHANGED PER SURGEON ORDERS. PATIENT TOLERATED WELL. PATIENT LYING IN BED, DENIES ANY NEEDS AT THIS TIME. PATIENTS FAMILY AT BEDSIDE. CALL LIGHT WITHIN REACH.
--- NOTE | 2023-08-24 19:23 | NUR ---
[place] administered po for c/o 12/24 pain.
[2023-08-25] VITALS (12 sets, daily range): BP systolic 117–145; BP diastolic 71–87; PULSE 78–98; TEMP 97.5–98.4
--- NOTE | 2023-08-25 03:18 | NUR ---
Patient care, medication administration and nursing documentation occurred during a Daylight Savings Time Change.
[2023-08-25 07:31] LABS: BASO # 0.1 K/mm3 (0.0-0.2); BASO % 0.4 % (0.0-2.0); EOS # 1.5 K/mm3 (0.0-0.7); EOS % 11.3 % (0.0-4.0); GRAN # 9.4 K/mm3 (1.4-6.5); GRAN % 69.8 % (42.2-75.2); LYMPH # 1.1 K/mm3 (1.2-3.4); LYMPH % 8.3 % (20.0-51.0); MEAN CELL VOLUME 82 fl (80.0-100.0); MEAN CORPUSCULAR HGB CONC 32 g/dl (33.0-37.0); MEAN PLATELET VOLUME 10.2 fl (7.4-10.4); MONO # 1.3 K/mm3 (0.1-0.6); MONO % 9.7 % (1.7-9.3); PLATELET COUNT 225 K/mm3 (130-400); RED BLOOD COUNT 3.05 M/mm3 (4.20-5.60); REDCELL DISTRIBUTION WIDTH-CV 15.4 % (11.5-14.5)
[2023-08-25 07:36] LABS: HEMOGLOBIN 7.9 g/dl (13.5-18.0); MEAN CORPUSCULAR HEMOGLOBIN 26 pg (27-31)
[2023-08-25 07:49] LABS: ALBUMIN 2.1 gm/dL (3.5-5.0); BILIRUBIN,TOTAL 0.8 mg/dL (0.2-1.2); CALCIUM 8.6 mg/dL (8.4-10.2); CREATININE, serum 5.83 mg/dL (0.72-1.25); POTASSIUM 4.1 mmol/L (3.5-4.5); TOTAL PROTEIN 7.3 gm/dL (6.2-8.1)
--- NOTE | 2023-08-25 12:32 | NUR ---
DRESSING CHANGE COMPLETE, PATIENT TOLERATED WELL. FAMILY AT BEDSIDE. CALL LIGHT WITHIN REACH.
[2023-08-25] MEDS ORDERED: Heparin 1,000 UNITS/ML 10 ML Multi-Dose VIAL IV SCH (14:00)
--- NOTE | 2023-08-25 16:54 | NUR ---
PATIENT AWAKE AND ALERT, SITTING UP IN BED. CALL LIGHT WITHIN REACH. PATIENT DENIES ANY NEEDS OR COMPLAINTS AT THIS TIME. FAMILY AT BEDSIDE
--- NOTE | 2023-08-25 17:07 | NUR ---
PATIENT AWAKE AND ALERT, SITTING UP IN THE RECLINER. FAMILY AT BEDSIDE CALL LIGHT WITHIN REACH.
--- NOTE | 2023-08-25 20:30 | NUR ---
States having abd pain 02/24, Up sitting in recliner, did give the [place]ady as ordered at this time,, also changed the abd dressing , did loosely pack wound with gauze, covered with 2x2 ,s and taped - had some serosanguinous drainage on previous dressing.
--- NOTE | 2023-08-25 20:30 | NUR ---
Initial shift assessment done--states pain is tolerable at this time, no nausea, requesting some pudding- family [, mom? ] in room they do stay the night,, has the LUE fistula,good thril/ bruit,, no other requests at this time, resting in bed.
[2023-08-26] VITALS (12 sets, daily range): BP systolic 127–149; BP diastolic 72–88; PULSE 76–88; TEMP 97.8–98.5
--- NOTE | 2023-08-26 05:53 | NUR ---
Informed pt he is having Dialysis at 0615 this morning-- he would like a [place] before going,, will give at this time, has been resting well for the past couple hours-- states the norco is effective for abd pain.
[2023-08-26 06:33] LABS: BASO # 0.1 K/mm3 (0.0-0.2); BASO % 0.7 % (0.0-2.0); EOS # 1.4 K/mm3 (0.0-0.7); EOS % 12.8 % (0.0-4.0); GRAN # 7.1 K/mm3 (1.4-6.5); GRAN % 64.9 % (42.2-75.2); LYMPH # 1.2 K/mm3 (1.2-3.4); LYMPH % 11.4 % (20.0-51.0); MEAN CELL VOLUME 79 fl (80.0-100.0); MEAN CORPUSCULAR HGB CONC 32 g/dl (33.0-37.0); MEAN PLATELET VOLUME 11.6 fl (7.4-10.4); MONO # 1.1 K/mm3 (0.1-0.6); MONO % 9.7 % (1.7-9.3); PLATELET COUNT 274 K/mm3 (130-400); RED BLOOD COUNT 3.07 M/mm3 (4.20-5.60); REDCELL DISTRIBUTION WIDTH-CV 15.3 % (11.5-14.5)
[2023-08-26 06:36] LABS: HEMATOCRIT 24.3 % (42.0-52.0); HEMOGLOBIN 7.8 g/dl (13.5-18.0); MEAN CORPUSCULAR HEMOGLOBIN 25 pg (27-31)
--- NOTE | 2023-08-26 06:45 | NUR ---
JO ANN AWAKE AND ALERT, CIRRENTLY IN DIALYSIS ROOM WITH DIALYSIS NURSE. JO ANN DENIES ANY NEEDS OR COMPLAINTS AT THIS TIME. TOP STOP ATTACHER GIVEN THIS RN EXTENSION.
[2023-08-26 06:53] LABS: CALCIUM 8.7 mg/dL (8.4-10.2); CREATININE, serum 7.46 mg/dL (0.72-1.25); POTASSIUM 4.7 mmol/L (3.5-4.5)
--- NOTE | 2023-08-26 09:35 | NUR ---
Dialysis note Pt arrived to tx ambuylatory uf goal set for 36.6 and increased to 3.8. Pt tolerated tx well dcd back to room without complaints
--- NOTE | 2023-08-26 09:45 | NUR ---
PATIENT BACK IN ROOM FROM DIALYSIS. PATIENT DENIES ANY NEEDS OR COMPLAINTS AT THIS TIME. CALL LIGHT WITHIN REACH. PATIENT STATED HE DOES NOT WANT HIS MEDICATION OR DRESSING CHANGE AT THIS TIME.
[2023-08-26] MEDS ORDERED: Ketorolac 15 MG/ML VIAL IV PRN (10:30)
--- NOTE | 2023-08-26 12:14 | NUR ---
DRESSING CHANGED , PATIENT TOLERATED WELL. PER DR GELLER NO MORE PACKING. DRESING JUST GAUZE TO TOP AND TAPE.
[2023-08-26] MEDS ORDERED: Cefepime 2 G in Water For Injection,Sterile 20 ML IV SCH (13:30)
[2023-08-26] MEDS ORDERED: MAXIPIME2 GM IJ (13:35)
--- NOTE | 2023-08-26 16:05 | NUR ---
Customs Brokerage Manager met with patient in dialysis and he stated he would like to transition to [facility] in [place]. SW explained she could initiate the referral, however patient would have to continue with [facility] until [facility] accepts and has a chair time. Patient verbalized understanding. HEAVEN spoke with Rupali at [facility] and uploaded clinicals to their admissions portal. HEAVEN was contacted by Hospitalist who advised patient would need IV antibiotics and that ID Physician recommended Cefepime, 2 grams, three times a week at dialysis. HEAVEN contacted [facility] and spoke with pharmacy clinical coordinator who advised they can administer it, but that the patient would have to bring the medication in. HEAVEN contacted Cyn at [facility] who advised they would not be able to order patient's meds to be administered at dialysis. HEAVEN then contacted Walter at [facility] who was not familiar with IV antibiotics being administered in Dialysis, but would review referral. Walter stated he thought they could deliver to patient's home and however patient chose to have them administed would be up to patient. HEAVEN faxed referral and prescription to Walter at [facility]. HEAVEN also provided update to patient and explained that he could not discharge until this was arranged.
--- NOTE | 2023-08-26 18:00 | NUR ---
PATIENT AWAKE AND ALERT, SITTING UP IN BED. PATIENT DENIES ANY NEEDS OR COMPLAINTS AT THIS TIME. CALL LIGHT WITHIN REACH. PATIENTS DAUGHTER AT BEDSIDE.
[2023-08-26 18:20] LABS: HEPATITIS B SURFACE ANTIGEN Negative (Negative); HEPATITIS C VIRUS ANTIBODY Negative (Negative)
--- NOTE | 2023-08-26 20:45 | NUR ---
Initial shift assessment done- in good spirits- family was here, daughter and mother,, will stay the night- is having some abd pain- would like a norco at this time--given with night meds,, no other requests at this time,, fistula to LUE- gauze intact. Talked with pt about doing the abd dressing change with 2300 antibiotic-- pt good with that plan.
[2023-08-27] VITALS (13 sets, daily range): BP systolic 134–162; BP diastolic 80–89; PULSE 75–79; TEMP 97.8–98.1
--- NOTE | 2023-08-27 05:59 | NUR ---
Quiet night-- has been resting well, VSS. No requests, Did do the abd dressing change at 2300 last night- scant serosanguinous drainage from wound near umbilicus,, covered with 2x2,s and tape.
--- NOTE | 2023-08-27 07:35 | NUR ---
PCT notified RN Pt's BG was 59. Pt was served breakfast and given juice to drink. RN asked PCT to recheck in 15 min.
--- NOTE | 2023-08-27 07:50 | NUR ---
RN notified by PCT Pt's BG was 68. PCT reported Pt had not consumed juice yet. RN encouraged Pt to drink juice.
--- NOTE | 2023-08-27 08:00 | NUR ---
Pt resting in bed. Per at bedside, Pt resting after PT. Pt is A&Ox4. VSS. Normal heart and lung sounds. ABD is rounded and soft. Pt reports 7/10 pain in ABD and describes it as aching. Pt declined pain meds, heat/ice packs, repositioning. Pt denies headache, n/v. Palpable pulses in all four extremities. IV INT in R hand. Flushes with no issues. AV Fistula in L forearm. Thrill and bruit present. Rechecked B. Pt had juice. Pt had no concerns or questions at this time. Pt in be with call light in reach.
--- NOTE | 2023-08-27 08:10 | NUR ---
RN entered room to recheck Pt BG. PT was in room. Discussed low BG with PT. RN checked B. Pt had not consumed juice. RN encouraged Pt to drink juice. PT stated they would encourage Pt as well.
--- NOTE | 2023-08-27 11:13 | NUR ---
PATIENT ALERT AND ORIENTED X4. VSS. PATIENT HERE FOR SEPSIS R/T PD CATH. PATIENT DENIES ANY PAIN THIS MORNING. IV TO RIGHT HAND INT AND FLUSHES WELL. OLD PD SITE WITH SOME SEROSANGUINEOUS DRAINAGE, DRESSING CHANGED THIS AM. ACCU CHECKS LOW THIS MORNING. PATIENT GIVEN JUICE AND ACCU CHECKS PERFORMED Q15 MINUTES, UP TO 95. PATIENT RESTING IN BED, CALL LIGHT IN REACH.
--- NOTE | 2023-08-27 11:59 | NUR ---
Administered ABX. Pt requested Miralax and Tums. Returned to room with meds. Pt decided he wuld like to wait until after he eats lunch to take Miralax and Tums.
--- NOTE | 2023-08-27 15:41 | NUR ---
Lawn And Garden Technician was contacted by [facility] and advised they are not in network with patient's insurance. HEAVEN then contacted [facility] out of [place] and advised this med would not be ordered through an infusion company, but instead patient's local pharmacy. HEAVEN contacted [facility] in [place] who advised they can order the med but it would need to be reconstituted. HEAVEN confirmed with Maude at [facility] that they can do this, all patient needs to do is provide the medication. The pharmacist at the [facility] will order the med and advised the earliest it could arrive is tomorrow. HEAVEN provided update to patient and also contacted Jazlyn at [facility] with update. Per their request, HEAVEN faxed clinicals and the prescription for the antibiotic to the Dialysis clinic.
--- NOTE | 2023-08-27 16:29 | NUR ---
Dialysis Note Pt arrived to tx via [place]. uf goal was set fir 2.0 and increased to 2.9 d/t HTN. uf of 2.9 tolerated pt dcd back to room.
--- NOTE | 2023-08-27 18:49 | NUR ---
PT STATED HE WOULD CALL FOR BREATHING TX WHEN HE WANTS THEM.
--- NOTE | 2023-08-27 23:14 | NUR ---
patient sitting up in chair, alert and oriented x4. pt denies chest pain and shortness of breath. report abd tenderness rated as 7/10, per request, norco given, reassessment pain rated as 5/10. IV in RH is patent, site is clean dry and intact. left AV fistula is open to air and intact. x4 lap sites open to air with small scarring/scabs skin clean dry and intact. peritoneal cath removal site mid abd dressing changed with small serosanguious drainage noted to open site, 4x4 gauze replaced at this time. pt has no further needs, questions, or concerns at this time. ambulating with steady gait, at bedside. call light within reach. will continue to monitor.
[2023-08-28 03:39] VITALS: BP 165/87; PULSE 79; TEMP 97.3
[2023-08-28 03:46] VITALS: BP_SYST 165
[2023-08-28] MEDS ORDERED: NS 1,000 ML IV SCH (06:30)
--- NOTE | 2023-08-28 07:04 | NUR ---
Bedside report received from DONNA Nelson. Pt is currently awake using restroom with no complaints. Call light within reach.
[2023-08-28 07:15] VITALS: BP 162/94; PULSE 76; TEMP 97.7
--- NOTE | 2023-08-28 07:23 | NUR ---
Shift assessment completed. Pt is A&O x4. Changed dressing on ABD. Pt taken to dialysis by this nurse. Pt has no complaints at this time.
[2023-08-28 07:24] VITALS: BP_SYST 162
--- NOTE | 2023-08-28 07:46 | NUR ---
PCT Isamar reported a blood sugar of 61. PCT offered patient apple juice. Pt stable with no signs of hypoglycemia. Pt in dialysis at this time.
--- NOTE | 2023-08-28 10:57 | NUR ---
Dialysis Note Pt arrived ambulatory. Uf goal set for 2.6 and increased to 3.0 d/t HTN. pt tolerated tx well goal achieved pt dcd back to room withoput complaints
[2023-08-28] MEDS ORDERED: Cefepime 2 G in Water For Injection,Sterile 20 ML IV SCH (11:00)
[2023-08-28 11:09] VITALS: BP 159/86; PULSE 90; TEMP 97.5
[2023-08-28 13:12] VITALS: BP_SYST 159
--- NOTE | 2023-08-28 14:04 | NUR ---
Discharge instructions provided to pt and pt . Pt and verbalized understanding of discharge instructions. INT to Rt hand discontinued with tip intact. Pt tolerated well with no complaints. Pt is leaving facility with and daughter.
--- NOTE | 2023-08-28 16:37 | NUR ---
Joss House Keeper met with patient in dialysis and the RN advised patient has been accepted at [facility] and that they can provide/administer the antibiotic. Patient is agreeable to this plan. HEAVEN contacted Twila, Bag Sealer at [facility] in [place] who confirmed patient is scheduled to start Saturday and that they need no further documents from HEAVEN. HEAVEN updated HEAVEN Hobson at [facility]. HEAVEN also contacted the [facility] and stated that med is no longer needed. HEAVEN confirmed patient will not be charged.
== END 2023-08-28 14:15 | disposition home or self-care (01) | DRG 907 ==
LOC: MEDICAL 02:15 → SURG 08-24 17:45
PROVIDERS: Internal Medicine; Internal Medicine Nephrology; Nurse Practitioner Family; Surgery; ADMIT Internal Medicine
PROC: 5A1D70Z Performance of Urinary Filtration, Intermittent, Less than 6 Hours Per Day (ICD-10-PCS; 2023-08-23)
PROC: 0WPG03Z Removal of Infusion Device from Peritoneal Cavity, Open Approach (ICD-10-PCS; principal; 2023-08-23 11:30)
DX: T85.71XA Infection and inflammatory reaction due to peritoneal dialysis catheter, initial encounter (principal); A41.9 Sepsis, unspecified organism; N18.6 End stage renal disease; J96.01 Acute respiratory failure with hypoxia; K65.8 Other peritonitis; N25.81 Secondary hyperparathyroidism of renal origin; I31.39 Other pericardial effusion (noninflammatory); I13.2 Hypertensive heart and chronic kidney disease with heart failure and with stage 5 chronic kidney disease, or end stage renal disease; K21.9 Gastro-esophageal reflux disease without esophagitis; R91.1 Solitary pulmonary nodule; E11.40 Type 2 diabetes mellitus with diabetic neuropathy, unspecified; R74.01 Elevation of levels of liver transaminase levels; D63.1 Anemia in chronic kidney disease; I25.10 Atherosclerotic heart disease of native coronary artery without angina pectoris; I07.1 Rheumatic tricuspid insufficiency; B96.1 Klebsiella pneumoniae [K. pneumoniae] as the cause of diseases classified elsewhere; E11.649 Type 2 diabetes mellitus with hypoglycemia without coma; I50.9 Heart failure, unspecified; K75.81 Nonalcoholic steatohepatitis (NASH); E78.5 Hyperlipidemia, unspecified; Y83.8 Other surgical procedures as the cause of abnormal reaction of the patient, or of later complication, without mention of misadventure at the time of the procedure; E11.22 Type 2 diabetes mellitus with diabetic chronic kidney disease; Z99.2 Dependence on renal dialysis; I25.2 Old myocardial infarction; Z89.411 Acquired absence of right great toe; Z79.899 Other long term (current) drug therapy; Z79.4 Long term (current) use of insulin; Z23 Encounter for immunization
CPT/HCPCS: C9113; J0348; J0692; J1170; J1450; J1644; J1815; J1885; J2250; J2405; J2543; J2704; J3010; J3370; J7030; J7050; Q3014; Q9967

== ENCOUNTER 2024-01-22 10:48 | Emergency (ER) | payer OTHER ==
[~2024-01-22] VITALS: Ht 162.6 cm; Wt 64.0 kg
[~2024-01-22 10:48] MED LIST changes: +MAXIPIME2 GM IJ; +VALIUM 5MG T5 MG/TAB PO; +XANAX .25M0.25 MG/TA PO
[2024-01-22 11:10] VITALS: TEMP 98
[2024-01-22] MEDS ORDERED: levETIRAcetam 1,000 MG in Syringe 1 EACH IV ONE (11:15)
[2024-01-22] MEDS ORDERED: niCARdipine 200 ML IV ONE (11:15)
[2024-01-22 11:36] LABS: INR 1.2 (0.8-3.0); PROTHROMBIN TIME 12.6 SECONDS (9.7-12.8)
[2024-01-22 11:40] LABS: HEMATOCRIT 37.4 % (42.0-52.0); HEMOGLOBIN 11.5 g/dl (13.5-18.0); MEAN CELL VOLUME 76 fl (80.0-100.0); MEAN CORPUSCULAR HEMOGLOBIN 24 pg (27-31); MEAN CORPUSCULAR HGB CONC 31 g/dl (33.0-37.0); MEAN PLATELET VOLUME 9.1 fl (7.4-10.4); PLATELET COUNT 180 K/mm3 (130-400); REDCELL DISTRIBUTION WIDTH-CV 16.1 % (11.5-14.5)
[2024-01-22] MEDS ORDERED: Ondansetron 4 MG/2 ML VIAL IV ONE (11:45)
[2024-01-22 11:52] LABS: ALBUMIN 3.4 g/dL (3.5-5.0); BILIRUBIN,TOTAL 0.8 mg/dL (0.2-1.2); CALCIUM 12.5 mg/dL (8.4-10.2); CREATININE, serum 8.7 mg/dL (0.72-1.25); MAGNESIUM 2.4 mg/dL (1.6-2.6); POTASSIUM 4.5 mEq/L (3.5-4.5); TOTAL PROTEIN 8.7 g/dl (6.2-8.1)
[2024-01-22] MEDS ORDERED: ATARAX50 MG PO (12:16)
[2024-01-22] MEDS ORDERED: TRADJENTA5 MG PO (12:16)
[2024-01-22] MEDS ORDERED: ERGOCALCIFER50000 IU PO (12:23)
[2024-01-22] MEDS ORDERED: COREG 6.256.25 MG/TA PO (12:23)
[2024-01-22] MEDS ORDERED: APRESOLINE 10MG10 MG PO (12:24)
[2024-01-22 12:48] LABS: EOSINOPHIL 16 % (0-4); LYMPHOCYTE 23 % (20.0-51.0); NEUTROPHILS 51 % (42.0-75.2); PLATELET ESTIMATE NORMAL (NORMAL)
[2024-01-22 12:49] LABS: MICROCYTOSIS 1+
[2024-01-22 13:10] VITALS: BP 130/76; PULSE 88
== END 2024-01-22 13:10 | disposition short-term general hospital (02) ==
LOC: COL.ER 10:48
PROVIDERS: Family Medicine
DX: I61.9 Nontraumatic intracerebral hemorrhage, unspecified (principal); I12.0 Hypertensive chronic kidney disease with stage 5 chronic kidney disease or end stage renal disease; E11.22 Type 2 diabetes mellitus with diabetic chronic kidney disease; N18.6 End stage renal disease; Z99.2 Dependence on renal dialysis
CPT/HCPCS: J1953; J2404; J2405